=== PATIENT | male | born 1950 | race Caucasian/White ===

== ENCOUNTER 2020-12-29 16:06 | Emergency (ER) | payer MEDICARE ==
[2020-12-29 17:47] LABS: #Basophils 0.1 thou/uL (0.0-0.2); #Lymphocytes 1.3 thou/uL (1.20-3.40); #Monocytes 0.5 thou/uL (0.11-0.59); #Neutrophils 3.2 thou/uL (1.40-6.50); %Basophils 1.8 % (0.0-1.0); %Eosinophils 0.2 % (0.0-10.0); %Lymphocytes 25.3 % (21.0-51.0); %Monocytes 9.1 % (0.0-10.0); %Neutrophils 63.5 % (42.0-75.0); Hemoglobin 14.8 g/dL (14.0-18.0); Mean Corpuscular HGB CONC 33.5 g/dL (32.0-36.0); Mean Corpuscular Hemoglobin 31.1 pg (27.0-31.0); Mean Corpuscular Volume 92.8 fL (78.0-98.0); Mean Platelet Volume 10.2 fL (7.4-10.4); Platelet Count 106 thou/uL (130-400); RBC Distribution Width 12.4 % (11.5-14.5); Red Blood Cell (RBC) Count 4.77 mill/uL (4.70-6.10); White Blood Cell (WBC) Count 5.1 thou/uL (4.8-10.8)
[2020-12-29 18:22] LABS: Magnesium 2.4 mg/dL (1.6-2.6)
[2020-12-29 18:53] LABS: ALT (SGPT) 24 U/L (8-55); AST (SGOT) 37 U/L (5-34); Albumin 3.8 g/dL (3.4-4.8); Alkaline Phosphatase 67 U/L (40-110); Anion Gap 14 mmol/L (10-20); BUN (Urea Nitrogen) 21 mg/dL (8.4-25.7); Bilirubin, Total 0.8 mg/dL (0.2-1.2); Calc. Creatinine Clearance 0 mL/min (70-130); Calcium 8.5 mg/dL (7.8-10.44); Carbon Dioxide 27 mmol/L (23-31); Chloride 104 mmol/L (98-107); Globulin 2.6 g/dL (2.4-3.5); Glucose 98 mg/dL (83-110); Potassium 4.1 mmol/L (3.5-5.1); Protein, Total 6.4 g/dL (5.8-8.1); Sodium 141 mmol/L (136-145)
[2020-12-29 19:19] LABS: Bacteria/HPF None Seen HPF (None Seen); Bilirubin Negative (Negative); Blood, Urine Negative (Negative); Clarity Clear (Clear); Glucose, Urine (Dipstick) Normal (Negative); Ketone, Urine 10 mg/dL (Negative); Leukocyte Negative Leu/uL (Negative); Nitrite Negative (Negative); Protein, Urine (Dipstick) 30 mg/dL (Neg-Trace); RBC/HPF None Seen HPF (0-3); Specific Gravity, Urine 1.027 (1.002-1.036); Squamous Epithelial None Seen HPF (0-3); Urobilinogen Normal mg/dL (Less than 2); WBC/HPF 0-3 HPF (0-3); pH, Urine 5.5 (5.0-9.0)
== END 2020-12-29 19:53 | disposition home or self-care (01) ==
LOC: ERS 16:06
DX: G47.9 Sleep disorder, unspecified (principal); R44.3 Hallucinations, unspecified; E78.5 Hyperlipidemia, unspecified; E78.00 Pure hypercholesterolemia, unspecified; I10 Essential (primary) hypertension
CPT/HCPCS: 36415; 51701; 71045; 80053; 81003; 81015; 83735; 84443; 84484; 85025; 93005

== ENCOUNTER 2021-02-03 10:39 | Outpatient (CLI) | payer MEDICARE | END 2021-02-03 10:40 | disposition home or self-care (01) | LOC: PET 10:39 | PROVIDERS: ATTEND Psychiatry & Neurology Neurology | DX: G30.0 Alzheimer's disease with early onset (principal) | CPT/HCPCS: 78803; A9552 ==

== ENCOUNTER 2021-12-03 12:11 | Inpatient (IN) | payer MEDICARE ==
[2021-12-03] MEDS ORDERED: Promethazine HCl 25 MG/ML VIAL IM PRN (13:54)
[2021-12-03] MEDS ORDERED: Morphine 2 MG/ML VIAL SLOW IVP PRN (13:54)
[2021-12-03] MEDS ORDERED: hydrALAZINE 20 MG/ML VIAL SLOW IVP PRN (13:54)
[2021-12-03] MEDS ORDERED: traMADol HCl 50 MG TAB PO PRN (13:57)
[2021-12-03 14:10] LABS: #Lymphocytes 1.5 thou/uL (1.20-3.40); #Monocytes 0.7 thou/uL (0.11-0.59); #Neutrophils 6.9 thou/uL (1.40-6.50); %Basophils 0.1 % (0.0-1.0); %Eosinophils 0.2 % (0.0-10.0); %Neutrophils 75.7 % (42.0-75.0); Hemoglobin 14.4 g/dL (14.0-18.0); Mean Corpuscular HGB CONC 32.7 g/dL (32.0-36.0); Mean Corpuscular Hemoglobin 30.9 pg (27.0-31.0); Mean Corpuscular Volume 94.4 fL (78.0-98.0); Mean Platelet Volume 10.7 fL (7.4-10.4); Platelet Count 115 thou/uL (130-400); RBC Distribution Width 12.1 % (11.5-14.5); Red Blood Cell (RBC) Count 4.66 mill/uL (4.70-6.10); White Blood Cell (WBC) Count 9.2 thou/uL (4.8-10.8)
[2021-12-03 14:21] LABS: INR-International Normal Ratio 1.1; PTT 33.2 sec (22.9-36.1); Prothrombin Time 14.6 sec (12.0-14.7)
[2021-12-03 14:25] LABS: ALT (SGPT) 19 U/L (8-55); AST (SGOT) 30 U/L (5-34); Albumin 4.3 g/dL (3.4-4.8); Alkaline Phosphatase 84 U/L (40-110); Anion Gap 11 mmol/L (10-20); BUN (Urea Nitrogen) 17 mg/dL (8.4-25.7); Bilirubin, Total 1.4 mg/dL (0.2-1.2); CK (CPK) 523 U/L (30-200); Calc. Creatinine Clearance 0 mL/min (70-130); Calcium 9.9 mg/dL (7.8-10.44); Carbon Dioxide 30 mmol/L (23-31); Chloride 106 mmol/L (98-107); Estimated GFR 97; Globulin 2.9 g/dL (2.4-3.5); Glucose 113 mg/dL (83-110); Potassium 4.2 mmol/L (3.5-5.1); Protein, Total 7.2 g/dL (5.8-8.1); Sodium 143 mmol/L (136-145)
[2021-12-03 15:21] LABS: SARS-CoV-2 NAA Rapid Test Not Detected (NotDetected)
[2021-12-03 16:08] VITALS: BMI 26.9
[2021-12-03] MEDS: Acetaminophen 500 MG TAB PO SCH ×2 (16:42→20:20)
[2021-12-03] MEDS: Sodium Chloride 0.9% 1,000 ML IV SCH ×2 (16:47→23:49)
[2021-12-03] MEDS: traMADol HCl 50 MG TAB PO SCH ×2 (17:56→23:48)
[2021-12-03 19:51] LABS: Bacteria/HPF None Seen HPF (None Seen); Bilirubin Negative (Negative); Blood, Urine Negative (Negative); Clarity Clear (Clear); Glucose, Urine (Dipstick) Normal (Negative); Ketone, Urine 10 mg/dL (Negative); Leukocyte Negative Leu/uL (Negative); Mucous/LPF Rare LPF (<2+); Nitrite Negative (Negative); Protein, Urine (Dipstick) 50 mg/dL (Neg-Trace); RBC/HPF 0-3 HPF (0-3); Specific Gravity, Urine 1.033 (1.002-1.036); Squamous Epithelial 0-3 HPF (0-3); WBC/HPF 0-3 HPF (0-3); pH, Urine 5.5 (5.0-9.0)
[2021-12-03 19:52] LABS: Sperm/HPF Rare HPF (None Seen)
[2021-12-03 19:54] LABS: Urine Culture Reflex No No
[2021-12-03] MEDS: Famotidine/PF 20 mg/2ml Vial SLOW IVP SCH (20:19)
[2021-12-03] MEDS: Senokot S 8.6-50 MG TAB PO SCH (20:20)
[2021-12-04] MEDS: Acetaminophen 500 MG TAB PO SCH ×4 (02:51→21:18)
[2021-12-04] MEDS: traMADol HCl 50 MG TAB PO SCH ×3 (05:47→17:56)
[2021-12-04 05:56] LABS: #Eosinphils 0.4 thou/uL (0.0-0.7); #Lymphocytes 2.1 thou/uL (1.20-3.40); #Monocytes 0.9 thou/uL (0.11-0.59); #Neutrophils 5.3 thou/uL (1.40-6.50); %Basophils 0.2 % (0.0-1.0); %Eosinophils 4.5 % (0.0-10.0); %Lymphocytes 24.1 % (21.0-51.0); %Neutrophils 61.1 % (42.0-75.0); Hemoglobin 13.1 g/dL (14.0-18.0); Mean Corpuscular HGB CONC 32.4 g/dL (32.0-36.0); Mean Corpuscular Hemoglobin 30.8 pg (27.0-31.0); Mean Corpuscular Volume 95.2 fL (78.0-98.0); Mean Platelet Volume 10.1 fL (7.4-10.4); Platelet Count 111 thou/uL (130-400); RBC Distribution Width 12.2 % (11.5-14.5); Red Blood Cell (RBC) Count 4.25 mill/uL (4.70-6.10); White Blood Cell (WBC) Count 8.7 thou/uL (4.8-10.8)
[2021-12-04 06:14] LABS: Phosphorus 2.5 mg/dL (2.3-4.7)
[2021-12-04 06:19] LABS: Anion Gap 11 mmol/L (10-20); BUN (Urea Nitrogen) 15 mg/dL (8.4-25.7); Calc. Creatinine Clearance 136 mL/min (70-130); Calcium 8.6 mg/dL (7.8-10.44); Carbon Dioxide 26 mmol/L (23-31); Chloride 108 mmol/L (98-107); Estimated GFR 100; Glucose 88 mg/dL (83-110); Magnesium 1.9 mg/dL (1.6-2.6); Potassium 3.5 mmol/L (3.5-5.1); Sodium 141 mmol/L (136-145)
[2021-12-04] MEDS ORDERED: Potassium Chloride 20 MEQ TAB PO SCH (07:00)
[2021-12-04] MEDS ORDERED: fentaNYL Citrate/PF 100 MCG/2 ML SYRINGE ONE (07:13)
[2021-12-04] MEDS ORDERED: Phenylephrine 10 MG/ML VIAL ONE ×2 (07:14→10:03)
[2021-12-04] MEDS: Famotidine/PF 20 mg/2ml Vial SLOW IVP SCH ×2 (08:19→21:20)
[2021-12-04] MEDS: Donepezil HCl 5 MG TAB PO SCH (08:22)
[2021-12-04] MEDS: Polyethylene Glycol 3350 17 GM Packet PO SCH (08:23)
[2021-12-04] MEDS: Senokot S 8.6-50 MG TAB PO SCH ×2 (08:23→21:16)
[2021-12-04] MEDS ORDERED: CEFAZOLIN 2 GM VIAL ONE (09:20)
[2021-12-04] MEDS ORDERED: Sodium Chloride 0.9% 100 ML ONE (09:20)
[2021-12-04] MEDS: Sodium Chloride 0.9% 1,000 ML IV SCH (09:41)
[2021-12-04] MEDS ORDERED: ceFAZolin 2 GM/Dextrose 50 ML 2 GM in Premix Bag 1 BAG IVPB SCH ×2 (10:00→14:00)
[2021-12-04] MEDS ORDERED: PROPOFOL 200 MG/20 ML VIAL ONE (10:03)
[2021-12-04] MEDS ORDERED: Rocuronium Bromide 10 MG/ML (10ML VIAL) ONE (10:03)
[2021-12-04] MEDS ORDERED: Lidocaine 1% PF 5 ML VIAL ONE (10:03)
[2021-12-04] MEDS ORDERED: SUGAMMADEX SODIUM 200 MG/2 ML VIAL ONE (10:56)
[2021-12-04] MEDS ORDERED: Promethazine HCl 25 MG/ML VIAL IM PRN (11:17)
[2021-12-04] MEDS ORDERED: Ondansetron HCl/PF 4 MG/2 ML Vial IVP PRN (11:17)
[2021-12-04] MEDS ORDERED: Promethazine HCl 25 MG/ML VIAL IVPB PRN (11:17)
[2021-12-04] MEDS: CEFAZOLIN 2 GM in Sodium Chloride 0.9% 100 ML IVPB SCH (17:57)
[2021-12-04] MEDS: Atorvastatin Calcium 10 MG TAB PO SCH (21:19)
[2021-12-05] MEDS: traMADol HCl 50 MG TAB PO SCH ×4 (00:15→19:46)
[2021-12-05] MEDS: CEFAZOLIN 2 GM in Sodium Chloride 0.9% 100 ML IVPB SCH (02:55)
[2021-12-05] MEDS: Acetaminophen 500 MG TAB PO SCH ×4 (03:16→19:59)
[2021-12-05] MEDS: Polyethylene Glycol 3350 17 GM Packet PO SCH (08:27)
[2021-12-05] MEDS: Aspirin 81 mg Enteric Coated Tablet PO SCH ×2 (08:27→19:58)
[2021-12-05] MEDS: Famotidine/PF 20 mg/2ml Vial SLOW IVP SCH ×2 (08:27→19:58)
[2021-12-05] MEDS: Senokot S 8.6-50 MG TAB PO SCH ×2 (08:27→21:35)
[2021-12-05] MEDS: Donepezil HCl 5 MG TAB PO SCH (08:27)
[2021-12-05] MEDS ORDERED: Sodium Chloride 0.9% 1,000 ML IV SCH (10:00)
[2021-12-05] MEDS ORDERED: Potassium Phosphate 30 MMOL in Sodium Chloride 0.9% 250 ML 250 ML IVPB SCH (19:15)
[2021-12-05] MEDS ORDERED: Potassium Chloride 20 MEQ TAB PO SCH (19:30)
[2021-12-05] MEDS: Atorvastatin Calcium 10 MG TAB PO SCH (19:58)
[2021-12-06] MEDS: Acetaminophen 500 MG TAB PO SCH ×3 (00:30→17:58)
[2021-12-06] MEDS: traMADol HCl 50 MG TAB PO SCH ×4 (00:30→18:03)
[2021-12-06] MEDS: Aspirin 81 mg Enteric Coated Tablet PO SCH ×2 (09:59→20:23)
[2021-12-06] MEDS: Donepezil HCl 5 MG TAB PO SCH (10:00)
[2021-12-06] MEDS: Famotidine 20 MG TAB PO SCH ×2 (10:01→20:23)
[2021-12-06] MEDS: Lisinopril 10 MG TAB PO SCH ×2 (10:01→20:25)
[2021-12-06] MEDS: Polyethylene Glycol 3350 17 GM Packet PO SCH (10:06)
[2021-12-06] MEDS: Senokot S 8.6-50 MG TAB PO SCH ×2 (10:06→20:23)
[2021-12-06] MEDS: Atorvastatin Calcium 10 MG TAB PO SCH (20:23)
[2021-12-07] MEDS: Acetaminophen 500 MG TAB PO SCH ×5 (00:05→23:33)
[2021-12-07] MEDS: traMADol HCl 50 MG TAB PO SCH ×5 (00:05→23:33)
[2021-12-07] MEDS: Ondansetron PF 4 MG/2 ML Vial IVP PRN (02:55)
[2021-12-07 06:05] LABS: #Eosinphils 0.3 thou/uL (0.0-0.7); #Lymphocytes 1.9 thou/uL (1.20-3.40); #Monocytes 0.8 thou/uL (0.11-0.59); #Neutrophils 6.2 thou/uL (1.40-6.50); %Basophils 0.2 % (0.0-1.0); %Eosinophils 3.1 % (0.0-10.0); %Lymphocytes 20.7 % (21.0-51.0); %Neutrophils 67.1 % (42.0-75.0); Hemoglobin 13.6 g/dL (14.0-18.0); Mean Corpuscular HGB CONC 32.8 g/dL (32.0-36.0); Mean Corpuscular Hemoglobin 30.7 pg (27.0-31.0); Mean Corpuscular Volume 93.8 fL (78.0-98.0); Mean Platelet Volume 9.2 fL (7.4-10.4); Platelet Count 169 thou/uL (130-400); Red Blood Cell (RBC) Count 4.42 mill/uL (4.70-6.10); White Blood Cell (WBC) Count 9.2 thou/uL (4.8-10.8)
[2021-12-07 06:25] LABS: Anion Gap 12 mmol/L (10-20); BUN (Urea Nitrogen) 9 mg/dL (8.4-25.7); Calc. Creatinine Clearance 161 mL/min (70-130); Calcium 8.9 mg/dL (7.8-10.44); Carbon Dioxide 29 mmol/L (23-31); Chloride 105 mmol/L (98-107); Estimated GFR 105; Glucose 91 mg/dL (83-110); Magnesium 1.9 mg/dL (1.6-2.6); Phosphorus 3.5 mg/dL (2.3-4.7); Potassium 3.2 mmol/L (3.5-5.1); Sodium 143 mmol/L (136-145)
[2021-12-07] MEDS ORDERED: Potassium Phosphate 30 MMOL, Magnesium Sulfate 2 GM in Sodium Chloride 0.9% 250 ML 250 ML IVPB SCH (09:00)
[2021-12-07] MEDS: Donepezil HCl 5 MG TAB PO SCH (09:16)
[2021-12-07] MEDS: Lisinopril 10 MG TAB PO SCH ×2 (09:16→20:06)
[2021-12-07] MEDS: Aspirin 81 mg Enteric Coated Tablet PO SCH ×2 (09:16→20:06)
[2021-12-07] MEDS: Famotidine 20 MG TAB PO SCH ×2 (09:16→20:06)
[2021-12-07] MEDS: Polyethylene Glycol 3350 17 GM Packet PO SCH (09:17)
[2021-12-07] MEDS: Senokot S 8.6-50 MG TAB PO SCH ×2 (09:17→20:07)
[2021-12-07] MEDS: Neostigmine 0.5 MG in Admixture Fee 1 EACH SC SCH ×3 (10:30→20:07)
[2021-12-07] MEDS: Atorvastatin Calcium 10 MG TAB PO SCH (20:06)
[2021-12-08] MEDS: Neostigmine 0.5 MG in Admixture Fee 1 EACH SC SCH (02:38)
[2021-12-08] MEDS: Ondansetron PF 4 MG/2 ML Vial IVP PRN (03:36)
[2021-12-08] MEDS: Acetaminophen 500 MG TAB PO SCH ×4 (05:38→23:31)
[2021-12-08] MEDS: traMADol HCl 50 MG TAB PO SCH ×4 (05:38→23:32)
[2021-12-08 06:51] LABS: #Eosinphils 0.1 thou/uL (0.0-0.7); #Lymphocytes 1.6 thou/uL (1.20-3.40); #Monocytes 0.8 thou/uL (0.11-0.59); #Neutrophils 7.7 thou/uL (1.40-6.50); %Basophils 0.1 % (0.0-1.0); %Eosinophils 1.1 % (0.0-10.0); %Lymphocytes 15.2 % (21.0-51.0); %Monocytes 7.4 % (0.0-10.0); Hemoglobin 13.2 g/dL (14.0-18.0); Mean Corpuscular HGB CONC 32.4 g/dL (32.0-36.0); Mean Corpuscular Hemoglobin 30.6 pg (27.0-31.0); Mean Corpuscular Volume 94.4 fL (78.0-98.0); Mean Platelet Volume 9.6 fL (7.4-10.4); Platelet Count 198 thou/uL (130-400); RBC Distribution Width 12.1 % (11.5-14.5); Red Blood Cell (RBC) Count 4.32 mill/uL (4.70-6.10); White Blood Cell (WBC) Count 10.2 thou/uL (4.8-10.8)
[2021-12-08 07:10] LABS: Anion Gap 17 mmol/L (10-20); BUN (Urea Nitrogen) 17 mg/dL (8.4-25.7); Calc. Creatinine Clearance 161 mL/min (70-130); Carbon Dioxide 22 mmol/L (23-31); Chloride 107 mmol/L (98-107); Estimated GFR 105; Glucose 117 mg/dL (83-110); Magnesium 2.2 mg/dL (1.6-2.6); Phosphorus 2.9 mg/dL (2.3-4.7); Potassium 3.4 mmol/L (3.5-5.1); Sodium 143 mmol/L (136-145)
[2021-12-08] MEDS ORDERED: Potassium Chloride 20 MEQ TAB PO SCH (09:00)
[2021-12-08] MEDS ORDERED: Sodium Chloride 0.9% 1,000 ML IV SCH (09:30)
[2021-12-08] MEDS: Aspirin 81 mg Enteric Coated Tablet PO SCH ×2 (13:45→20:17)
[2021-12-08] MEDS: Senokot S 8.6-50 MG TAB PO SCH ×2 (13:45→20:18)
[2021-12-08] MEDS: Famotidine 20 MG TAB PO SCH ×2 (13:45→20:17)
[2021-12-08] MEDS ORDERED: MD-Gastroview 120 ML BOT ONE (13:47)
[2021-12-08] MEDS: Polyethylene Glycol 3350 17 GM Packet PO SCH (14:07)
[2021-12-08] MEDS: Donepezil HCl 5 MG TAB PO SCH (14:07)
[2021-12-08] MEDS: Lisinopril 10 MG TAB PO SCH ×2 (14:08→20:17)
[2021-12-08] MEDS: NIFEdipine 10 MG CAP PO SCH (20:17)
[2021-12-08] MEDS: Atorvastatin Calcium 10 MG TAB PO SCH (20:17)
[2021-12-08] MEDS: Cyclobenzaprine 10 MG TAB PO PRN (20:18)
[2021-12-08] MEDS ORDERED: NIFEdipine 10 MG CAP PO SCH (21:00)
[2021-12-09 05:45] LABS: #Eosinphils 0.4 thou/uL (0.0-0.7); #Neutrophils 5.3 thou/uL (1.40-6.50); %Basophils 0.3 % (0.0-1.0); %Eosinophils 4.9 % (0.0-10.0); %Monocytes 10.9 % (0.0-10.0); %Neutrophils 60.8 % (42.0-75.0); Hemoglobin 12.6 g/dL (14.0-18.0); Mean Corpuscular HGB CONC 32.4 g/dL (32.0-36.0); Mean Corpuscular Hemoglobin 30.9 pg (27.0-31.0); Mean Corpuscular Volume 95.3 fL (78.0-98.0); Mean Platelet Volume 8.5 fL (7.4-10.4); Platelet Count 219 thou/uL (130-400); Red Blood Cell (RBC) Count 4.09 mill/uL (4.70-6.10); White Blood Cell (WBC) Count 8.7 thou/uL (4.8-10.8)
[2021-12-09] MEDS: traMADol HCl 50 MG TAB PO SCH ×2 (05:45→12:41)
[2021-12-09] MEDS: Acetaminophen 500 MG TAB PO SCH ×4 (05:45→23:07)
[2021-12-09 05:52] LABS: Anion Gap 14 mmol/L (10-20); BUN (Urea Nitrogen) 20 mg/dL (8.4-25.7); Calc. Creatinine Clearance 158 mL/min (70-130); Calcium 8.7 mg/dL (7.8-10.44); Carbon Dioxide 27 mmol/L (23-31); Chloride 107 mmol/L (98-107); Estimated GFR 104; Glucose 92 mg/dL (83-110); Magnesium 2.1 mg/dL (1.6-2.6); Sodium 145 mmol/L (136-145)
[2021-12-09] MEDS ORDERED: Potassium Phosphate 30 MMOL in Sodium Chloride 0.9% 250 ML 250 ML IVPB SCH (09:00)
[2021-12-09] MEDS: Famotidine 20 MG TAB PO SCH ×2 (09:46→20:40)
[2021-12-09] MEDS: Aspirin 81 mg Enteric Coated Tablet PO SCH ×2 (09:46→20:40)
[2021-12-09] MEDS: Lisinopril 10 MG TAB PO SCH ×2 (09:46→20:40)
[2021-12-09] MEDS: Donepezil HCl 5 MG TAB PO SCH (09:47)
[2021-12-09] MEDS: Multivitamin W/ Minerals 1 TAB PO SCH (09:47)
[2021-12-09] MEDS: Potassium Chloride 20 MEQ TAB PO SCH ×2 (09:48→20:40)
[2021-12-09] MEDS: Polyethylene Glycol 3350 17 GM Packet PO SCH (09:50)
[2021-12-09] MEDS: Senokot S 8.6-50 MG TAB PO SCH ×2 (09:50→19:59)
[2021-12-09] MEDS: Ondansetron PF 4 MG/2 ML Vial IVP PRN (18:17)
[2021-12-09] MEDS: NIFEdipine 10 MG CAP PO SCH (20:40)
[2021-12-09] MEDS: Cyclobenzaprine 10 MG TAB PO PRN (20:40)
[2021-12-09] MEDS: Atorvastatin Calcium 10 MG TAB PO SCH (20:40)
[2021-12-10] MEDS: Acetaminophen 500 MG TAB PO SCH ×4 (05:45→23:29)
[2021-12-10 08:38] LABS: Anion Gap 16 mmol/L (10-20); BUN (Urea Nitrogen) 17 mg/dL (8.4-25.7); Calc. Creatinine Clearance 152 mL/min (70-130); Calcium 9.1 mg/dL (7.8-10.44); Carbon Dioxide 28 mmol/L (23-31); Chloride 105 mmol/L (98-107); Estimated GFR 103; Glucose 98 mg/dL (83-110); Magnesium 2.1 mg/dL (1.6-2.6); Phosphorus 3.4 mg/dL (2.3-4.7); Potassium 4.2 mmol/L (3.5-5.1); Sodium 145 mmol/L (136-145)
[2021-12-10] MEDS: Aspirin 81 mg Enteric Coated Tablet PO SCH ×2 (10:36→20:33)
[2021-12-10] MEDS: Senokot S 8.6-50 MG TAB PO SCH ×2 (10:36→20:33)
[2021-12-10] MEDS: Multivitamin W/ Minerals 1 TAB PO SCH (10:36)
[2021-12-10] MEDS: Potassium Chloride 20 MEQ TAB PO SCH ×2 (10:36→20:34)
[2021-12-10] MEDS: Famotidine 20 MG TAB PO SCH ×2 (10:37→20:33)
[2021-12-10] MEDS: Lisinopril 10 MG TAB PO SCH ×2 (10:37→20:33)
[2021-12-10] MEDS: Polyethylene Glycol 3350 17 GM Packet PO SCH (10:37)
[2021-12-10] MEDS: Donepezil HCl 5 MG TAB PO SCH (10:49)
[2021-12-10] MEDS: NIFEdipine 10 MG CAP PO SCH (20:33)
[2021-12-10] MEDS: Atorvastatin Calcium 10 MG TAB PO SCH (20:33)
[2021-12-10] MEDS: Cyclobenzaprine 10 MG TAB PO PRN (20:34)
[2021-12-11] MEDS: Acetaminophen 500 MG TAB PO SCH ×3 (06:15→17:41)
[2021-12-11] MEDS: Multivitamin W/ Minerals 1 TAB PO SCH (09:25)
[2021-12-11] MEDS: Senokot S 8.6-50 MG TAB PO SCH ×2 (09:25→21:01)
[2021-12-11] MEDS: Lisinopril 10 MG TAB PO SCH ×2 (09:25→21:00)
[2021-12-11] MEDS: Aspirin 81 mg Enteric Coated Tablet PO SCH ×2 (09:25→21:00)
[2021-12-11] MEDS: Potassium Chloride 20 MEQ TAB PO SCH ×2 (09:25→21:00)
[2021-12-11] MEDS: Famotidine 20 MG TAB PO SCH ×2 (09:25→21:00)
[2021-12-11] MEDS: Donepezil HCl 5 MG TAB PO SCH (09:26)
[2021-12-11] MEDS: Polyethylene Glycol 3350 17 GM Packet PO SCH (14:19)
[2021-12-11] MEDS: NIFEdipine 10 MG CAP PO SCH (20:59)
[2021-12-11] MEDS: Atorvastatin Calcium 10 MG TAB PO SCH (21:00)
[2021-12-11] MEDS: Ondansetron PF 4 MG/2 ML Vial IVP PRN (22:45)
[2021-12-12] MEDS ORDERED: Sodium Chloride 0.9% 1,000 ML IV SCH ×2 (00:30→04:45)
[2021-12-12] MEDS: Acetaminophen 500 MG TAB PO SCH ×5 (00:31→23:17)
[2021-12-12 05:53] LABS: #Lymphocytes 1.8 thou/uL (1.20-3.40); #Monocytes 0.7 thou/uL (0.11-0.59); #Neutrophils 8.5 thou/uL (1.40-6.50); %Basophils 0.3 % (0.0-1.0); %Eosinophils 0.3 % (0.0-10.0); %Lymphocytes 16.3 % (21.0-51.0); %Monocytes 6.7 % (0.0-10.0); %Neutrophils 76.4 % (42.0-75.0); Hemoglobin 14.7 g/dL (14.0-18.0); Mean Corpuscular HGB CONC 31.7 g/dL (32.0-36.0); Mean Corpuscular Hemoglobin 30.2 pg (27.0-31.0); Mean Corpuscular Volume 95.3 fL (78.0-98.0); Mean Platelet Volume 8.2 fL (7.4-10.4); Platelet Count 289 thou/uL (130-400); RBC Distribution Width 12.1 % (11.5-14.5); Red Blood Cell (RBC) Count 4.85 mill/uL (4.70-6.10); White Blood Cell (WBC) Count 11.1 thou/uL (4.8-10.8)
[2021-12-12 06:07] LABS: Anion Gap 17 mmol/L (10-20); BUN (Urea Nitrogen) 19 mg/dL (8.4-25.7); Calc. Creatinine Clearance 132 mL/min (70-130); Calcium 9.3 mg/dL (7.8-10.44); Carbon Dioxide 32 mmol/L (23-31); Chloride 103 mmol/L (98-107); Estimated GFR 99; Glucose 120 mg/dL (83-110); Magnesium 2.2 mg/dL (1.6-2.6); Potassium 3.8 mmol/L (3.5-5.1); Sodium 148 mmol/L (136-145)
[2021-12-12 06:12] LABS: Phosphorus 4.3 mg/dL (2.3-4.7)
[2021-12-12] MEDS ORDERED: Lactated Ringer's 1,000 ML IV SCH (07:30)
[2021-12-12] MEDS: Polyethylene Glycol 3350 17 GM Packet PO SCH (08:32)
[2021-12-12] MEDS: Potassium Chloride 20 MEQ in Premix Bag 1 BAG IVPB SCH ×2 (08:34→11:02)
[2021-12-12] MEDS: Donepezil HCl 5 MG TAB PO SCH (08:35)
[2021-12-12] MEDS: Lisinopril 10 MG TAB PO SCH ×2 (08:35→20:15)
[2021-12-12] MEDS: Aspirin 81 mg Enteric Coated Tablet PO SCH ×2 (08:35→20:14)
[2021-12-12] MEDS: Multivitamin W/ Minerals 1 TAB PO SCH (08:35)
[2021-12-12] MEDS: Senokot S 8.6-50 MG TAB PO SCH ×2 (08:35→20:14)
[2021-12-12] MEDS ORDERED: Pantoprazole 40 MG VIAL IVP SCH ×2 (09:58→10:15)
[2021-12-12] MEDS: Pantoprazole 40 MG VIAL IVP SCH (20:13)
[2021-12-12] MEDS: Amlodipine 10 MG TAB PO SCH (20:14)
[2021-12-12] MEDS: Atorvastatin Calcium 10 MG TAB PO SCH (20:16)
[2021-12-13 07:20] LABS: Anion Gap 14 mmol/L (10-20); BUN (Urea Nitrogen) 26 mg/dL (8.4-25.7); Calc. Creatinine Clearance 125 mL/min (70-130); Calcium 8.7 mg/dL (7.8-10.44); Carbon Dioxide 29 mmol/L (23-31); Chloride 105 mmol/L (98-107); Estimated GFR 97; Glucose 102 mg/dL (83-110); Magnesium 2.2 mg/dL (1.6-2.6); Phosphorus 3.2 mg/dL (2.3-4.7); Potassium 3.3 mmol/L (3.5-5.1); Sodium 145 mmol/L (136-145)
[2021-12-13] MEDS: Acetaminophen 500 MG TAB PO SCH ×4 (07:22→22:22)
[2021-12-13] MEDS ORDERED: Potassium Chloride 20 MEQ in Premix Bag 1 BAG IVPB SCH (08:30)
[2021-12-13] MEDS: Polyethylene Glycol 3350 17 GM Packet PO SCH (08:57)
[2021-12-13] MEDS: Senokot S 8.6-50 MG TAB PO SCH ×2 (08:59→19:59)
[2021-12-13] MEDS: Donepezil HCl 5 MG TAB PO SCH (08:59)
[2021-12-13] MEDS: Aspirin 81 mg Enteric Coated Tablet PO SCH ×2 (08:59→20:03)
[2021-12-13] MEDS: Multivitamin W/ Minerals 1 TAB PO SCH (08:59)
[2021-12-13] MEDS: Lisinopril 10 MG TAB PO SCH ×2 (08:59→20:03)
[2021-12-13] MEDS: Pantoprazole 40 MG VIAL IVP SCH (08:59)
[2021-12-13] MEDS ORDERED: Potassium Chloride 20 MEQ TAB PO SCH (18:00)
[2021-12-13] MEDS: Amlodipine 10 MG TAB PO SCH (19:59)
[2021-12-13] MEDS: Cyclobenzaprine 10 MG TAB PO PRN (20:03)
[2021-12-13] MEDS: Atorvastatin Calcium 10 MG TAB PO SCH (20:03)
[2021-12-14] MEDS: Acetaminophen 500 MG TAB PO SCH ×4 (05:34→23:30)
[2021-12-14 06:52] LABS: Anion Gap 12 mmol/L (10-20); BUN (Urea Nitrogen) 18 mg/dL (8.4-25.7); Calc. Creatinine Clearance 150 mL/min (70-130); Calcium 8.3 mg/dL (7.8-10.44); Carbon Dioxide 29 mmol/L (23-31); Chloride 104 mmol/L (98-107); Estimated GFR 103; Glucose 86 mg/dL (83-110); Phosphorus 2.6 mg/dL (2.3-4.7); Potassium 3.2 mmol/L (3.5-5.1); Sodium 142 mmol/L (136-145)
[2021-12-14] MEDS ORDERED: Potassium Chloride 20 MEQ in Premix Bag 1 BAG IVPB SCH (07:15)
[2021-12-14] MEDS ORDERED: Potassium Chloride 20 MEQ TAB PO SCH (07:15)
[2021-12-14] MEDS: Polyethylene Glycol 3350 17 GM Packet PO SCH (09:15)
[2021-12-14] MEDS: Donepezil HCl 5 MG TAB PO SCH (09:16)
[2021-12-14] MEDS: Lisinopril 10 MG TAB PO SCH ×2 (09:16→22:02)
[2021-12-14] MEDS: Senokot S 8.6-50 MG TAB PO SCH ×2 (09:16→22:02)
[2021-12-14] MEDS: Multivitamin W/ Minerals 1 TAB PO SCH (09:16)
[2021-12-14] MEDS: Aspirin 81 mg Enteric Coated Tablet PO SCH ×2 (09:16→22:02)
[2021-12-14] MEDS ORDERED: Sodium Chloride 0.9% 500 ML IV SCH (14:00)
[2021-12-14 14:39] LABS: #Eosinphils 0.2 thou/uL (0.0-0.7); #Lymphocytes 2.2 thou/uL (1.20-3.40); #Monocytes 1.1 thou/uL (0.11-0.59); #Neutrophils 7.7 thou/uL (1.40-6.50); %Basophils 0.1 % (0.0-1.0); %Lymphocytes 19.4 % (21.0-51.0); %Monocytes 9.6 % (0.0-10.0); %Neutrophils 68.9 % (42.0-75.0); Hemoglobin 13.2 g/dL (14.0-18.0); Mean Corpuscular Hemoglobin 31.2 pg (27.0-31.0); Mean Corpuscular Volume 94.4 fL (78.0-98.0); Mean Platelet Volume 8.9 fL (7.4-10.4); Platelet Count 281 thou/uL (130-400); RBC Distribution Width 12.2 % (11.5-14.5); Red Blood Cell (RBC) Count 4.22 mill/uL (4.70-6.10); White Blood Cell (WBC) Count 11.2 thou/uL (4.8-10.8)
[2021-12-14 15:02] LABS: Anion Gap 18 mmol/L (10-20); BUN (Urea Nitrogen) 18 mg/dL (8.4-25.7); Calc. Creatinine Clearance 114 mL/min (70-130); Calcium 8.5 mg/dL (7.8-10.44); Carbon Dioxide 21 mmol/L (23-31); Chloride 104 mmol/L (98-107); Estimated GFR 94; Glucose 99 mg/dL (83-110); Potassium 3.7 mmol/L (3.5-5.1); Sodium 139 mmol/L (136-145)
[2021-12-14] MEDS: Amlodipine 10 MG TAB PO SCH (22:01)
[2021-12-14] MEDS: Atorvastatin Calcium 10 MG TAB PO SCH (22:02)
[2021-12-14] MEDS: Cyclobenzaprine 10 MG TAB PO PRN (22:03)
[2021-12-14] MEDS: NS 0.9% w/ 20 MEQ KCL 1,000 ML/1,000 ML BAG IV SCH (22:15)
[2021-12-15] MEDS: Acetaminophen 500 MG TAB PO SCH ×2 (05:07→15:40)
[2021-12-15] MEDS: NS 0.9% w/ 20 MEQ KCL 1,000 ML/1,000 ML BAG IV SCH (06:56)
[2021-12-15] MEDS: Donepezil HCl 5 MG TAB PO SCH (09:59)
[2021-12-15] MEDS: Multivitamin W/ Minerals 1 TAB PO SCH (10:00)
[2021-12-15] MEDS: Lisinopril 10 MG TAB PO SCH (10:00)
[2021-12-15] MEDS: Aspirin 81 mg Enteric Coated Tablet PO SCH (10:00)
[2021-12-15] MEDS: Senokot S 8.6-50 MG TAB PO SCH (10:00)
[2021-12-15] MEDS ORDERED: Potassium Chloride 20 MEQ TAB PO SCH (10:00)
[2021-12-15] MEDS: Polyethylene Glycol 3350 17 GM Packet PO SCH (10:01)
[2021-12-15 12:26] VITALS: BP 128/66; TEMP 96.8
== END 2021-12-15 15:20 | disposition swing bed (61) | DRG 481 ==
LOC: ERS 12:11 → SURG B 13:45 → SURG A 12-04 19:48
PROVIDERS: ADMIT Nurse Practitioner Acute Care; ATTEND Surgery
PROC: 0QS636Z Reposition Right Upper Femur with Intramedullary Internal Fixation Device, Percutaneous Approach (ICD-10-PCS; principal; 2021-12-04)
PROC: 0D9670Z Drainage of Stomach with Drainage Device, Via Natural or Artificial Opening (ICD-10-PCS; 2021-12-07)
DX: S72.141A Displaced intertrochanteric fracture of right femur, initial encounter for closed fracture (principal); K56.7 Ileus, unspecified; E87.6 Hypokalemia; Z20.822 Contact with and (suspected) exposure to COVID-19; E78.1 Pure hyperglyceridemia; I10 Essential (primary) hypertension; G30.0 Alzheimer's disease with early onset; F02.80 Dementia in other diseases classified elsewhere, unspecified severity, without behavioral disturbance, psychotic disturbance, mood disturbance, and anxiety; W18.30XA Fall on same level, unspecified, initial encounter; Z79.899 Other long term (current) drug therapy; Z98.42 Cataract extraction status, left eye
CPT/HCPCS: 36415; 36416; 71045; 74018; 74019; 74250; 76000; 80048; 80053; 81001; 82550; 83735; 84100; 84484; 85025; 85610; 85730; 86850; 86900; 86901; 93005; 93010; C1713; C9113; G0390; J0690; J2370; J2405; J2550; J2704; J2710; J3475; J3480; J3490; J7030; J7050; J7120; P9045; Q9963; S0028; U0002; U0003; U0005

== ENCOUNTER 2022-01-06 21:39 | Emergency (ER) | payer MEDICARE | END 2022-01-07 01:10 | disposition home or self-care (01) | LOC: ERS 21:43 | DX: S09.90XA Unspecified injury of head, initial encounter (principal); S20.211A Contusion of right front wall of thorax, initial encounter; E78.00 Pure hypercholesterolemia, unspecified; E78.2 Mixed hyperlipidemia; I10 Essential (primary) hypertension; W03.XXXA Other fall on same level due to collision with another person, initial encounter | CPT/HCPCS: 70450; 72170 ==

== ENCOUNTER 2023-10-26 14:34 | Emergency (ER) | payer MEDICARE | END 2023-10-26 17:19 | disposition home or self-care (01) | LOC: ERS 14:34 | DX: I10 Essential (primary) hypertension (principal); E78.5 Hyperlipidemia, unspecified; F03.90 Unspecified dementia, unspecified severity, without behavioral disturbance, psychotic disturbance, mood disturbance, and anxiety; Z55.6 Problems related to health literacy; Z79.82 Long term (current) use of aspirin; Z79.899 Other long term (current) drug therapy | CPT/HCPCS: 93005 ==

== ENCOUNTER 2024-02-19 10:35 | Emergency (ER) | payer MEDICARE | END 2024-02-19 17:38 | disposition home or self-care (01) | LOC: ERS 10:35 | DX: R51.9 Headache, unspecified (principal); M54.2 Cervicalgia; I10 Essential (primary) hypertension; E78.00 Pure hypercholesterolemia, unspecified; Z79.82 Long term (current) use of aspirin; Z79.899 Other long term (current) drug therapy; W19.XXXA Unspecified fall, initial encounter | CPT/HCPCS: 70450; 71045; 72125; 72170 ==

== ENCOUNTER 2024-06-21 12:54 | Emergency (ER) | payer MEDICARE ==
[2024-06-21 13:36] LABS: #Basophils 0.06 10x3/uL (0.0-0.2); %Basophils 0.8 % (0.0-1.0); %Eosinophils 3.3 % (0.0-10.0); %Lymphocytes 36.9 % (21.0-51.0); %Monocytes 7.5 % (0.0-10.0); %Neutrophils 51.4 % (42.0-75.0); Hematocrit 42.1 % (42.0-52.0); Hemoglobin 13.7 g/dL (14.0-18.0); Mean Corpuscular HGB CONC 32.5 g/dL (32.0-36.0); Mean Corpuscular Hemoglobin 28.9 pg (27.0-31.0); Mean Corpuscular Volume 88.8 fL (78.0-98.0); Platelet Count 159 10x3/uL (130-400); RBC Distribution Width 13.8 % (11.5-14.5); Red Blood Cell (RBC) Count 4.74 mill/uL (4.70-6.10)
[2024-06-21 13:57] LABS: Troponin I Less than 0.010 ng/mL (< 0.028)
[2024-06-21 13:59] LABS: ALT (SGPT) 10 U/L (Less than 45); AST (SGOT) 16 U/L (11-34); Acetaminophen Less than 10 mcg/mL (Less than 10); Alcohol Less than 10.0 mg/dL (Less than 10); Alkaline Phosphatase 124 U/L (40-110); Anion Gap 11 mmol/L (10-20); BUN (Urea Nitrogen) 13 mg/dL (8.4-25.7); Bilirubin, Total 0.8 mg/dL (0.3-1.2); Calc. Creatinine Clearance 0 mL/min (70-130); Calcium 9.1 mg/dL (7.8-10.44); Carbon Dioxide 29 mmol/L (23-31); Chloride 108 mmol/L (98-107); Estimated GFR 98; Glucose 86 mg/dL (83-110); Lipase 14 U/L (8-78); Magnesium 2.1 mg/dL (1.6-2.6); Potassium 3.9 mmol/L (3.5-5.1); Salicylate Less than 8.0 mg/dL (Less than 8.0); Sodium 144 mmol/L (136-145)
[2024-06-21 15:17] LABS: Amphetamine Not Detected (NotDetected); Bacteria/HPF None Seen HPF (None Seen); Barbiturates Screen Not Detected (NotDetected); Benzodiazepine Screen Not Detected (NotDetected); Bilirubin Negative (Negative); Blood, Urine 1+ (Negative); CAUTI Indications for Culture Pelvic or flank pain; Clarity Turbid (Clear); Cocaine Metabolite Screen Not Detected (NotDetected); Glucose, Urine (Dipstick) Normal (Negative); Ketone, Urine Negative (Negative); Leukocyte Negative Leu/uL (Negative); Methadone Not Detected (NotDetected); Methamphetamine Not Detected (NotDetected); Nitrite Negative (Negative); Opiate Screen Detected (NotDetected); Oxycodone Screen Not Detected (NotDetected); Phencyclidine (PCP) Not Detected (NotDetected); Protein, Urine (Dipstick) 20 mg/dL (Neg-Trace); RBC/HPF Greater than 50 HPF (0-3); Specific Gravity, Urine 1.028 (1.002-1.036); Squamous Epithelial 0-3 HPF (0-3); THC/Cannabinoid Screen Not Detected (NotDetected); Tricyclic Screen Detected (NotDetected); pH, Urine 5.5 (5.0-9.0)
[2024-06-21 15:18] LABS: Urine Culture Reflex No No
== END 2024-06-21 19:50 ==
LOC: ERS 12:54
DX: R07.9 Chest pain, unspecified (principal); I10 Essential (primary) hypertension
CPT/HCPCS: 36415; 70450; 71045; 80053; 80306; 80307; 81001; 83605; 83690; 83735; 83880; 84484; 85025; 87040; 87086; 93005

== ENCOUNTER 2025-04-21 06:56 | Emergency (ER) | payer MEDICARE ==
[2025-04-21 08:03] LABS: #Basophils 0.06 10x3/uL (0.0-0.2); #Eosinophils 0.38 10x3/uL (0.0-0.7); #Monocytes 0.57 10x3/uL (0.11-0.59); #Neutrophils 4.25 10x3/uL (1.40-6.50); %Basophils 0.8 % (0.0-1.0); %Eosinophils 5.2 % (0.0-10.0); %Lymphocytes 27.8 % (21.0-51.0); %Monocytes 7.8 % (0.0-10.0); %Neutrophils 58.3 % (42.0-75.0); Hematocrit 42.8 % (42.0-52.0); Hemoglobin 13.4 g/dL (14.0-18.0); Mean Corpuscular Hemoglobin 28.2 pg (27.0-31.0); Mean Corpuscular Volume 90.1 fL (78.0-98.0); Platelet Count 156 10x3/uL (130-400); Red Blood Cell (RBC) Count 4.75 mill/uL (4.70-6.10); White Blood Cell (WBC) Count 7.30 10x3/uL (4.8-10.8)
[2025-04-21 08:25] LABS: ALT (SGPT) 16 U/L (Less than 45); AST (SGOT) 20 U/L (11-34); Albumin 3.9 g/dL (3.1-4.5); Alkaline Phosphatase 111 U/L (40-110); Anion Gap 13 mmol/L (10-20); BUN (Urea Nitrogen) 19 mg/dL (8.4-25.7); Bilirubin, Total 0.9 mg/dL (0.3-1.2); Calc. Creatinine Clearance 0 mL/min (70-130); Calcium 9.0 mg/dL (7.8-10.44); Carbon Dioxide 26 mmol/L (23-31); Chloride 109 mmol/L (98-107); Globulin 2.5 g/dL (2.4-3.5); Glucose 83 mg/dL (83-110); Potassium 4.1 mmol/L (3.5-5.1); Sodium 144 mmol/L (136-145)
== END 2025-04-21 12:23 | disposition home or self-care (01) ==
LOC: ERS 06:56
DX: S09.90XA Unspecified injury of head, initial encounter (principal); F03.90 Unspecified dementia, unspecified severity, without behavioral disturbance, psychotic disturbance, mood disturbance, and anxiety; R91.1 Solitary pulmonary nodule; E78.00 Pure hypercholesterolemia, unspecified; I10 Essential (primary) hypertension; W22.8XXA Striking against or struck by other objects, initial encounter; Z79.82 Long term (current) use of aspirin
CPT/HCPCS: 70450; 71045; 72125; 80053; 84484; 85025; 93005